=== PATIENT | female | born 1965 | race Hispanic/Latino ===

== ENCOUNTER 2017-09-05 09:58 | Emergency (ER) | payer SELFPAY ==
[2017-09-05 09:58] VITALS: BMI 23.4
[2017-09-05] MEDS ORDERED: Sodium Chloride 0.9% 1,000 ML IV STA (10:31)
--- NOTE | 2017-09-05 10:32 | ED PDOC ---
Arrival/HPI <Alan Mirza - Last Filed: 09/05/17 11:57> - History of Present Illness Time/Duration: < week Symptom Course: Intermittent Activities at Onset: Light Context: Home <Desiree White - Last Filed: 09/07/17 22:24> - General Chief Complaint: GI Problem Time Seen by Provider: 09/05/17 10:17 - History of Present Illness Narrative History of Present Illness (Text): 09/05/17 10:32 This is a 51 year old female with no PMH presents to the ER for nausea, vomiting , and diarrhea that began on Tuesday evening. Patient states she had [employer] on tuesday night and developed symptoms shortly after. She admits to nonbloody vomiting x4 today and x6 yesterday as well as associated abdominal cramps. She denies CP, SOB, blood in the urine or stool, urinary complaints, headaches, fevers, chills, recent sick contacts and recent travel. She has had gastric bypass surgery 25 years ago, 28 years ago, gallbladder removal, and hiatal hernia repair. PMD= none (Desiree White) Past Medical History - Provider Review Nursing Documentation Reviewed: Yes - Infectious Disease Hx of Infectious Diseases: None - Tetanus Immunization Tetanus Immunization: Unknown - Reproductive Menopause: Yes - Neurological Hx Neurological Disorder: No - Psychiatric Hx Depression: No Hx Emotional Abuse: No Hx Physical Abuse: No Hx Substance Use: No - Surgical History Hx Section: Yes Hx Hysterectomy: Yes Other/Comment: gastric by pass with mesh placement - Anesthesia Hx Anesthesia: Yes Hx Anesthesia Reactions: No Hx Malignant Hyperthermia: No - Suicidal Assessment Feels Threatened In Home Enviroment: No <Desiree White - Last Filed: 09/07/17 22:24> Family/Social History - Physician Review Nursing Documentation Reviewed: Yes Family/Social History: Unknown Family HX Smoking Status: Never Smoked Hx Alcohol Use: Yes Hx Substance Use: No Hx Substance Use Treatment: No <Desiree White - Last Filed: 09/07/17 22:24> Allergies/Home Meds <Alan Mirza - Last Filed: 09/05/17 11:57> <Desiree White - Last Filed: 09/07/17 22:24> Allergies/Adverse Reactions: Allergies latex Allergy (Verified 09/05/17 10:24) SWELLING Penicillins Allergy (Verified 09/05/17 10:24) ANAPHYLAXIS Review of Systems - Physician Review All systems were reviewed & negative as marked: Yes - Review of Systems Constitutional: Normal. absent: Fevers Eyes: Normal ENT: Normal Respiratory: Normal. absent: SOB Cardiovascular: Normal. absent: Chest Pain Gastrointestinal: Abdominal Pain, Diarrhea, Nausea, Vomiting. absent: Constipation, Hematochezia, Hematemesis Genitourinary Female: Normal. absent: Dysuria, Hematuria Musculoskeletal: Normal Skin: Normal Neurological: Normal. absent: Headache Psychiatric: Normal <Desiree White - Last Filed: 09/07/17 22:24> Physical Exam Vital Signs Reviewed: Yes Temperature: Afebrile Blood Pressure: Hypertensive Pulse: Regular Respiratory Rate: Normal Appearance: Positive for: Well-Appearing, Non-Toxic, Comfortable Pain Distress: None Mental Status: Positive for: Alert and Oriented X 3 - Systems Exam Head: Present: Atraumatic, Normocephalic Pupils: Present: PERRL Extroacular Muscles: Present: EOMI Conjunctiva: Present: Normal Mouth: Present: Moist Mucous Membranes Neck: Present: Normal Range of Motion Respiratory/Chest: Present: Clear to Auscultation, Good Air Exchange. No: Respiratory Distress, Accessory Muscle Use Cardiovascular: Present: Regular Rate and Rhythm, Normal S1, S2. No: Murmurs Abdomen: Present: Tenderness, Normal Bowel Sounds. No: Distention, Peritoneal Signs, Rebound, Guarding Back: Present: Normal Inspection Upper Extremity: Present: Normal Inspection. No: Cyanosis, Edema Lower Extremity: Present: Normal Inspection. No: Edema Neurological: Present: Speech Normal, Motor Func Grossly Intact, Normal Sensory Function Skin: Present: Warm, Dry, Normal Color. No: Rashes Psychiatric: Present: Alert, Oriented x 3, Normal Insight, Normal Concentration <Desiree White - Last Filed: 09/07/17 22:24> Vital Signs Temp Pulse Resp BP Pulse Ox 09/05/17 12:34 98.4 F 70 17 160/96 H 98 09/05/17 10:09 98.9 F 92 H 18 155/92 H 99 Medical Decision Making <Alan Mirza - Last Filed: 09/05/17 11:57> <Desiree White - Last Filed: 09/07/17 22:24> ED Course and Treatment: 09/05/17 11:54 patient seen and examined by myself, presents with acute vomiting and diarrhea, no red flags such fever/bloody stools/melena/foreign travel or recent abx use. patient remained stable throughout ED course and stable for dc. (Alan Mirza ) 09/05/17 10:40 Impression: This is a 51 year old female with no PMH presents to the ER for nausea, vomiting, and diarrhea that began on Tuesday evening. Differential not limited to: Viral gastroenteritis vs bacterial gastroenteritis vs gastritis Plan: Will hydrate, give zofran and pepcid and reassess. Will check blood work and lipase. RUQ US not needed as no gallbladder. Progress: (Desiree White) - Lab Interpretations Lab Results: 09/05/17 11:24 09/05/17 11:24 Lab Results 09/05/17 11:24: Sodium 140, Potassium 4.2, Chloride 102, Carbon Dioxide 25, Anion Gap 16, BUN 15, Creatinine 0.5 L, Est GFR ( Amer) > 60, Est GFR ( Non-Af Amer) > 60, Random Glucose 95, Calcium 9.4, Total Bilirubin 0.6, AST 32, ALT 30, Alkaline Phosphatase 58, Total Protein 7.8, Albumin 4.5, Globulin 3.3, Albumin/Globulin Ratio 1.4, Lipase 106 09/05/17 11:24: WBC 7.3 D, RBC 4.45, Hgb 12.3, Hct 36.1, MCV 81.1, MCH 27.6, MCHC 34.1, RDW 14.3, Plt Count 308, MPV 10.1, Gran % 63.9, Lymph % (Auto) 29.7, [place] % (Auto) 4.9, Eos % (Auto) 1.2 L, Baso % (Auto) 0.3, Gran # 4.68, Lymph # ( Auto) 2.2, [place] # (Auto) 0.4, Eos # (Auto) 0.1, Baso # (Auto) 0.02 - Medication Orders Current Medication Orders: Discontinued Medications Famotidine (Pepcid) 20 mg IVP STAT STA Stop: 09/05/17 10:34 Last Admin: 09/05/17 11:18 Dose: 20 mg IVP Administration Document 09/05/17 11:18 MR (Rec: 09/05/17 11:18 MR [id number]) Charges for Administration # of IVP Administrations 1 Sodium Chloride (Sodium Chloride 0.9%) 1,000 mls @ 999 mls/hr IV .Q1H1M STA Stop: 09/05/17 11:31 Last Admin: 09/05/17 11:38 Dose: Sodium Chloride (Sodium Chloride 0.9%) 500 mls @ 999 mls/hr IV .Q31M STA Stop: 09/05/17 11:01 Last Admin: 09/05/17 11:18 Dose: 999 mls/hr eMAR Start Stop Document 09/05/17 11:18 MR (Rec: 09/05/17 11:18 MR [id number]) Intravenous Solution Start Date 09/05/17 Start Time 11:18 End Date 09/05/17 End time 11:50 Total Infusion Time 32 Ondansetron HCl (Zofran Inj) 4 mg IVP STAT STA Stop: 09/05/17 10:32 Last Admin: 09/05/17 11:17 Dose: 4 mg IVP Administration Document 09/05/17 11:17 MR (Rec: 09/05/17 11:17 MR [id number]) Charges for Administration # of IVP Administrations 1 - PA / INSURANCE CLAIM REPRESENTATIVE / Resident Statement / has reviewed & agrees with the documentation as recorded. / has examined the patient and agrees with the treatment plan. <Desiree White - Last Filed: 09/07/17 22:24> Disposition/Present on Arrival - Present on Arrival Any Indicators Present on Arrival: No - Disposition Have Diagnosis and Disposition been Completed?: Yes Disposition Time: 11:57 Patient Plan: Discharge <Alan Mirza - Last Filed: 09/05/17 11:57> - Present on Arrival Any Indicators Present on Arrival: No History of DVT/PE: No History of Uncontrolled Diabetes: No Urinary Catheter: No History of Decub. Ulcer: No History Surgical Site Infection Following: None - Disposition Have Diagnosis and Disposition been Completed?: Yes Patient Plan: Discharge <Desiree White - Last Filed: 09/07/17 22:24> - Disposition Diagnosis: Gastroenteritis Disposition: HOME/ ROUTINE Condition: STABLE Discharge Instructions (ExitCare): Gastroenteritis (ED) Print Language: AMHARIC Additional Instructions: stay well hydrated (water). return for any new or worsening symptoms especially bloody stools, fever greater than 100.4 or persistent right lower abdominal pain. you may retrieve medical records through [employer] system at [email or web address] website Prescriptions: Ondansetron [Zofran] 4 mg PO Q8H #12 tab Referrals: Anusha Giordano MD [Staff Provider] - Follow up with primary Forms: [employer] (Hungarian), WORK NOTE
[2017-09-05] MEDS ORDERED: Sodium Chloride 0.9% 500 ML IV STA (10:33)
[2017-09-05 11:31] LABS: BASO # 0.02 K/mm3 (0.0-2.0); BASO % 0.3 % (0.0-3.0); EOS # 0.1 (0.0-0.7); EOS % 1.2 % (1.5-5.0); GRAN # 4.68 (1.4-6.5); GRAN % 63.9 % (50.0-68.0); HEMOGLOBIN 12.3 g/dL (12.0-16.0); LYMPH # 2.2 (1.2-3.4); LYMPH % 29.7 % (22.0-35.0); MEAN CELL VOLUME 81.1 fl (80.0-105.0); MEAN CORPUSCULAR HEMOGLOBIN 27.6 pg (25.0-35.0); MEAN CORPUSCULAR HGB CONC 34.1 g/dl (31.0-37.0); MEAN PLATELET VOLUME 10.1 fl (7.0-11.0); MONO # 0.4 (0.1-0.6); MONO % 4.9 % (1.0-6.0); RBC 4.45 10^6/uL (3.5-6.1); RED CELL DISTRIBUTION WIDTH 14.3 % (11.5-14.5); WHITE BLOOD COUNT 7.3 10^3/ul (4.5-11.0)
[2017-09-05 11:38] LABS: ALB/GLOB RATIO 1.4 (1.1-1.8); ALBUMIN 4.5 g/dL (3.0-4.8); ALT/SGPT 30 U/L (7-56); AST/SGOT 32 U/L (14-36); BLOOD UREA NITROGEN 15 mg/dL (7-21); CALCIUM 9.4 mg/dL (8.4-10.5); GFR AFRICAN-AMERICAN > 60; GFR NON-AFRICAN AMERICAN > 60; LIPASE 106 U/L (23-300)
[2017-09-05 12:35] VITALS: BP 160/96; PULSE 70; RESP 17; TEMP 98.4; O2SAT 98
== END 2017-09-05 12:34 | disposition home or self-care (01) ==
LOC: ED 09:58
DX: K52.9 Noninfective gastroenteritis and colitis, unspecified (principal)
CPT/HCPCS: 80053; 83690; 85025; 96361; 96374; 96375; 99284; J2405; J7030

== ENCOUNTER 2017-11-17 10:19 | Emergency (ER) | payer OTHER ==
[2017-11-17 10:22] VITALS: TEMP 98.6; BMI 28.5
[2017-11-17] MEDS ORDERED: Silver Sulfadiazine 1% Cream (25 gm) TP STA (10:26)
--- NOTE | 2017-11-17 10:30 | ED PDOC ---
Arrival/HPI - General Chief Complaint: Burn Time Seen by Provider: 11/17/17 10:25 Historian: Patient - History of Present Illness Narrative History of Present Illness (Text): 51 y/o F w/ with no significant past medical history presenting to the emergency department s/p rapid response call due to a boiling pot of hot soup falling onto her right leg prior to arrival. Patient states she was attempting to transfer soup from the stove to the counter when she slipped and spilled soup content to her right thigh. She immediately felt pain and her clothes sticking to the wound which she attempted to pull. Rapid response was called and patient was brought into the emergency department immediately. Patient denies any fever, chills, chest pain, shortness of breath, abdominal pain, nausea, vomiting, diarrhea, back pain, neck pain, headache, dizziness, or any other complaints/injuries. Time/Duration: Prior to Arrival Symptom Onset: Sudden Symptom Course: Improving Severity Level: Mild Activities at Onset: Significant Context: Work Past Medical History - Provider Review Nursing Documentation Reviewed: Yes - Travel History Have you recently traveled outside [place] w/in the past 3 mons?: No - Infectious Disease Hx of Infectious Diseases: None - Tetanus Immunization Tetanus Immunization: Unknown - Cardiac Hx Cardiac Disorders: Yes Hx Hypertension: Yes - Neurological Hx Neurological Disorder: No - Psychiatric Hx Depression: No Hx Emotional Abuse: No Hx Physical Abuse: No Hx Substance Use: No - Surgical History Hx Section: Yes Hx Hysterectomy: Yes Other/Comment: gastric by pass with mesh placement - Anesthesia Hx Anesthesia: Yes Hx Anesthesia Reactions: No Hx Malignant Hyperthermia: No - Suicidal Assessment Feels Threatened In Home Enviroment: No Family/Social History - Physician Review Nursing Documentation Reviewed: Yes Family/Social History: No Known Family HX Smoking Status: Never Smoked Hx Alcohol Use: Yes Hx Substance Use: No Hx Substance Use Treatment: No Allergies/Home Meds Allergies/Adverse Reactions: Allergies latex Allergy (Verified 11/17/17 10:21) SWELLING Penicillins Allergy (Verified 11/17/17 10:21) ANAPHYLAXIS Review of Systems - Physician Review All systems were reviewed & negative as marked: Yes - Review of Systems Constitutional: absent: Fevers, Other (Chills) Respiratory: absent: SOB Cardiovascular: absent: Chest Pain Gastrointestinal: absent: Abdominal Pain, Diarrhea, Nausea, Vomiting Musculoskeletal: absent: Back Pain, Neck Pain Skin: Other (redness and pain to the right thigh) Neurological: absent: Headache, Dizziness Physical Exam Vital Signs Reviewed: Yes Vital Signs Temp Pulse Resp BP Pulse Ox 11/17/17 10:21 98.6 F 113 H 19 127/90 98 Temperature: Afebrile Blood Pressure: Normal Pulse: Tachycardic Respiratory Rate: Normal Appearance: Positive for: Well-Appearing, Non-Toxic, Comfortable Pain Distress: None Mental Status: Positive for: Alert and Oriented X 3 - Systems Exam Head: Present: Atraumatic, Normocephalic Pupils: Present: PERRL Extroacular Muscles: Present: EOMI Conjunctiva: Present: Normal Mouth: Present: Moist Mucous Membranes Neck: Present: Normal Range of Motion Respiratory/Chest: Present: Clear to Auscultation, Good Air Exchange. No: Respiratory Distress, Accessory Muscle Use Cardiovascular: Present: Regular Rate and Rhythm, Normal S1, S2. No: Murmurs Lower Extremity: Present: NORMAL PULSES (Distal pulses intact), Tenderness (Slight tenderness to palpation to the right thigh), Erythema (Large area to the anterior medial right thigh. No blisters noted). No: Edema Neurological: Present: GCS=15, CN II-XII Intact, Speech Normal Skin: Present: Warm, Dry, Normal Color. No: Rashes Psychiatric: Present: Alert, Oriented x 3, Normal Insight, Normal Concentration Medical Decision Making ED Course and Treatment: 11/17/17 10:30 Impression: 51 year old female presents s/p spilling boiling pot of hot soup to her right thigh prior to arrival concerning for first degree burn Plan: -- Silvadene 1% 25 gm -- Reassess and disposition Progress Notes: 11/17/17 10:40 On reevaluation patient is complaining of a headache. Will order Fioricet and discharge patient. 11/17/17 10:58 On re-evaluation, patient feels better and is in no acute distress. I have discussed the plan with the patient, who expresses understanding. Patient in agreement with plan to be discharged home. Patient is stable for discharge. Patient was instructed to follow up with physician or return if symptoms worsen or new concerning symptoms arise. - Scribe Statement The provider has reviewed the documentation as recorded by the Ivette Gonzalez Provider Scribe Attestation: All medical record entries made by the Scribe were at my direction and personally dictated by me. I have reviewed the chart and agree that the record accurately reflects my personal performance of the history, physical exam, medical decision making, and the department course for this patient. I have also personally directed, reviewed, and agree with the discharge instructions and disposition. Disposition/Present on Arrival - Present on Arrival Any Indicators Present on Arrival: No History of DVT/PE: No History of Uncontrolled Diabetes: No Urinary Catheter: No History of Decub. Ulcer: No History Surgical Site Infection Following: None - Disposition Have Diagnosis and Disposition been Completed?: Yes Diagnosis: First degree burn injury Disposition: HOME/ ROUTINE Disposition Time: 10:59 Patient Plan: Discharge Condition: STABLE Discharge Instructions (ExitCare): [place] (DC) Prescriptions: Ibuprofen [Motrin] 600 mg PO Q6H 2 Days #12 tab [place] [facility] [place] - Follow up with primary Anusha Giordano MD [Medical Doctor] - Follow up with primary Forms: [employer] [facility] (Beninese), WORK NOTE
[2017-11-17] MEDS ORDERED: Apap-Butalbital-Caffeine 325-50-40mg Tab PO STA (10:46)
[2017-11-17 11:30] VITALS: BP 121/75; PULSE 88; RESP 18; O2SAT 99
== END 2017-11-17 11:29 | disposition home or self-care (01) ==
LOC: ED 10:19
DX: T24.111A Burn of first degree of right thigh, initial encounter (principal); X12.XXXA Contact with other hot fluids, initial encounter; Y92.238 Other place in hospital as the place of occurrence of the external cause; Y99.0 Civilian activity done for income or pay

== ENCOUNTER 2018-07-20 12:38 | Emergency (ER) | payer OTHER ==
[2018-07-20 12:44] VITALS: BMI 28.3
[2018-07-20 12:47] VITALS: RESP 18; TEMP 98.6
[2018-07-20] MEDS ORDERED: Sodium Chloride 0.9% 1,000 ML IV STA (13:11)
--- NOTE | 2018-07-20 13:16 | ED PDOC ---
Arrival/HPI - General Chief Complaint: High Blood Pressure Time Seen by Provider: 07/20/18 12:44 Historian: Patient - History of Present Illness Narrative History of Present Illness (Text): 07/20/18 13:13 A 52 year old female, who is an employee of [employer], whose past medical history includes hypertension, presents to the ED complaining of nausea and vomiting since today. Patient reports associated headache, dizziness and high blood pressure (checked at home). Patient denies any fall, fevers, chills, weakness, numbness, chest pain, shortness of breath, dyspnea on exertion, cough, abdominal pain, diarrhea, back pain, neck pain, urinary/bowel changes, or any other complaints. PMD: Dr. Mccauley Time/Duration: 4-6 hours Symptom Onset: Gradual Symptom Course: Unchanged Activities at Onset: Significant Context: Home Past Medical History - Provider Review Nursing Documentation Reviewed: Yes - Infectious Disease Hx of Infectious Diseases: None - Tetanus Immunization Tetanus Immunization: Unknown - Cardiac Hx Cardiac Disorders: Yes Hx Hypertension: Yes - Neurological Hx Neurological Disorder: No - Psychiatric Hx Depression: No Hx Emotional Abuse: No Hx Physical Abuse: No Hx Substance Use: No - Surgical History Hx Section: Yes Hx Hysterectomy: Yes Other/Comment: gastric by pass with mesh placement - Anesthesia Hx Anesthesia: Yes Hx Anesthesia Reactions: No Hx Malignant Hyperthermia: No - Suicidal Assessment Feels Threatened In Home Enviroment: No Family/Social History - Physician Review Nursing Documentation Reviewed: Yes Family/Social History: No Known Family HX Smoking Status: Never Smoked Hx Alcohol Use: Yes Hx Substance Use: No Hx Substance Use Treatment: No Allergies/Home Meds Allergies/Adverse Reactions: Allergies latex Allergy (Verified 07/20/18 12:44) SWELLING Penicillins Allergy (Verified 07/20/18 12:44) ANAPHYLAXIS Home Medications: Home Meds Medication Instructions Recorded Confirmed Estradiol [Estrace] 2 mg PO DAILY 07/20/18 07/20/18 amLODIPine [Norvasc] 5 mg PO DAILY 07/20/18 07/20/18 Review of Systems - Physician Review All systems were reviewed & negative as marked: Yes - Review of Systems Gastrointestinal: Nausea, Vomiting Neurological: Headache, Dizziness Physical Exam Vital Signs Reviewed: Yes Vital Signs Temp Pulse Resp BP Pulse Ox 07/20/18 13:02 98.6 F 158/100 H 07/20/18 12:45 98.6 F 97 H 18 173/109 H 97 Temperature: Afebrile Blood Pressure: Hypertensive Pulse: Regular Respiratory Rate: Normal Appearance: Positive for: Well-Appearing, Non-Toxic, Comfortable Pain Distress: None - Systems Exam Head: Present: Tenderness (Tenderness to palpation at right orthodox.) Pupils: Present: PERRL Extroacular Muscles: Present: EOMI Conjunctiva: Present: Normal Respiratory/Chest: Present: Clear to Auscultation, Good Air Exchange. No: Respiratory Distress, Accessory Muscle Use Cardiovascular: Present: Regular Rate and Rhythm, Normal S1, S2. No: Murmurs Skin: Present: Warm, Dry, Normal Color. No: Rashes Psychiatric: Present: Alert, Oriented x 3, Normal Insight, Normal Concentration Medical Decision Making ED Course and Treatment: 07/20/18 13:22 Impression: 52 year old female who presents to the ED complaining of nausea and vomiting since today. Plan: -- Head CT -- Labs -- Norvasc -- Reglan -- IV Fluids -- Urinalysis -- Reassess and disposition Prior Visits: Notes and results from previous visits were reviewed. Patient was last seen in the emergency department on 11/17/17. Progress Notes: 07/20/18 14:49 Labs reviewed with no acute abnormalities. UA pending. CTH results pending. 07/20/18 15:32 CTH negative for intracranial abnormalities. Patient reevaluated and feels better. She states she has an appointment with her PCP on 07/27/18. She admits to having enough Norvasc and does not need a refill at this time. Opportunity for questions given and answered. She is stable for discharge. - Lab Interpretations Lab Results: 07/20/18 13:50 07/20/18 13:50 Lab Results 07/20/18 13:50: Sodium 137, Potassium 4.2, Chloride 102, Carbon Dioxide 25, Anion Gap 14, BUN 14, Creatinine 0.5 L, Est GFR ( Amer) > 60, Est GFR (Non-Af Amer) > 60, Random Glucose 90, Calcium 9.4, Total Bilirubin 0.3, AST 33, ALT 20, Alkaline Phosphatase 50, Troponin I < 0.01, Total Protein 7.9, Albumin 4.5, Globulin 3.5, Albumin/Globulin Ratio 1.3 07/20/18 13:50: WBC 8.8, RBC 4.49, Hgb 12.1, Hct 37.0, MCV 82.4, MCH 26.9, MCHC 32.7, RDW 14.7 H, Plt Count 340, MPV 9.8, Neut % (Auto) 70.9 H, Lymph % (Auto) 24.3, [place] % (Auto) 3.6, Eos % (Auto) 0.6 L, Baso % (Auto) 0.6, Lymph # (Auto) 2.1, [place] # (Auto) 0.3, Eos # (Auto) 0.1, Baso # (Auto) 0.05, Absolute Neuts (auto) 6.22 I have reviewed the lab results: Yes - RAD Interpretation Narrative RAD Interpretations (Text): 07/20/18 15:[address] IMPRESSION: No intracranial, hemorrhage or evidence of acute infarct. Radiology Orders: 07/20/18 13:11 HEAD W/O CONTRAST [CT] Stat - EKG Interpretation EKG Interpretation (Text): 07/20/18 13:25 EKG: NSR @ [address] abnormalities. No T wave inversions. - Medication Orders Current Medication Orders: Sodium Chloride (Sodium Chloride 0.9%) 1,000 mls @ 999 mls/hr IV .Q1H1M STA Stop: 07/20/18 14:11 Metoclopramide HCl (Reglan) 10 mg IVP STAT STA Stop: 07/20/18 13:12 Discontinued Medications Amlodipine Besylate (Norvasc) 10 mg PO STAT STA Stop: 07/20/18 13:04 - Scribe Statement The provider has reviewed the documentation as recorded by the Ivette Womack Provider Scribe Attestation: All medical record entries made by the [place] were at my direction and personally dictated by me. I have reviewed the chart and agree that the record accurately reflects my personal performance of the history, physical exam, medical decision making, and the department course for this patient. I have also personally directed, reviewed, and agree with the discharge instructions and disposition. Disposition/Present on Arrival - Present on Arrival Any Indicators Present on Arrival: No History of DVT/PE: No History of Uncontrolled Diabetes: No Urinary Catheter: No History of Decub. Ulcer: No History Surgical Site Infection Following: None - Disposition Have Diagnosis and Disposition been Completed?: Yes Diagnosis: Hypertensive urgency Disposition: HOME/ ROUTINE Disposition Time: 15:36 Patient Plan: Discharge Condition: GOOD Discharge Instructions (ExitCare): High Blood Pressure (DC) Print Language: SERBIAN Additional Instructions: All medical record entries made by the Scribe were at my direction and personally dictated by me. I have reviewed the chart and agree that the record accurately reflects my personal performance of the history, physical exam, medical decision making, and the department course for this patient. I have also personally directed, reviewed, and agree with the discharge instructions and disposition. Please follow up with your PCP in the upcoming week Try to take your antihypertensive medications as prescribed Referrals: Chary Renee MD [Family Provider] - Follow up with primary Forms: [employer] ([place]an), WORK NOTE
[2018-07-20 14:29] LABS: BASO # 0.05 K/mm3 (0.0-2.0); BASO % 0.6 % (0.0-3.0); EOS # 0.1 (0.0-0.7); EOS % 0.6 % (1.5-5.0); HEMOGLOBIN 12.1 g/dL (12.0-16.0); LYMPH # 2.1 (1.2-3.4); LYMPH % 24.3 % (22.0-35.0); MEAN CELL VOLUME 82.4 fl (80.0-105.0); MEAN CORPUSCULAR HEMOGLOBIN 26.9 pg (25.0-35.0); MEAN CORPUSCULAR HGB CONC 32.7 g/dl (31.0-37.0); MEAN PLATELET VOLUME 9.8 fl (7.0-11.0); MONO # 0.3 (0.1-0.6); MONO % 3.6 % (1.0-6.0); RBC 4.49 10^6/uL (3.5-6.1); RED CELL DISTRIBUTION WIDTH 14.7 % (11.5-14.5); WHITE BLOOD COUNT 8.8 10^3/uL (4.5-11.0)
[2018-07-20 14:32] LABS: ALB/GLOB RATIO 1.3 (1.1-1.8); ALBUMIN 4.5 g/dL (3.0-4.8); ALT/SGPT 20 U/L (7-56); AST/SGOT 33 U/L (14-36); BLOOD UREA NITROGEN 14 mg/dL (7-21); CALCIUM 9.4 mg/dL (8.4-10.5); GFR NON-AFRICAN AMERICAN > 60
[2018-07-20 14:36] VITALS: O2SAT 99
[2018-07-20 14:42] LABS: TROPONIN I < 0.01 ng/mL
[2018-07-20 14:51] LABS: PH,URINE 6.5 (4.7-8.0); URINE BILIRUBIN NEGATIVE (NEGATIVE); URINE BLOOD NEGATIVE (NEGATIVE); URINE GLUCOSE (UA) NEGATIVE (NEGATIVE); URINE LEUKOCYTE ESTERASE NEGATIVE Leu/uL (NEGATIVE); URINE PROTEIN NEGATIVE mg/dL (<30 mg/dL); URINE UROBILINOGEN 0.2 E.U./dL (<1 E.U./dL)
[2018-07-20 14:52] LABS: URINE APPEARANCE CLEAR (CLEAR); URINE COLOR YELLOW (YELLOW)
--- NOTE | 2018-07-20 14:58 | CT ---
Date of service: 07/20/2018 PROCEDURE: CT HEAD WITHOUT CONTRAST. HISTORY: headache COMPARISON: 07/28/2012 TECHNIQUE: Axial computed tomography images were obtained through the head/brain without intravenous contrast. Radiation dose: Total exam DLP = 846.17 mGy-cm. This CT exam was performed using one or more of the following dose reduction techniques: Automated exposure control, adjustment of the mA and/or kV according to patient size, and/or use of iterative reconstruction technique. FINDINGS: HEMORRHAGE: No intracranial hemorrhage. BRAIN: No mass effect or edema. No atrophy or chronic microvascular ischemic changes. VENTRICLES: Unremarkable. No hydrocephalus. CALVARIUM: Unremarkable. PARANASAL SINUSES: Unremarkable as visualized. No significant inflammatory changes. MASTOID AIR CELLS: Unremarkable as visualized. No inflammatory changes. OTHER FINDINGS: None. IMPRESSION: No intracranial mass, hemorrhage or evidence of acute infarct.
[2018-07-20 16:08] VITALS: BP 134/79; PULSE 81
--- NOTE | 2018-07-20 19:39 | CARD ---
APPROVED REPORT Date of service: 07/20/2018 EKG Measurement Heart [id number] <Conclusion> Normal sinus rhythm Normal ECG
== END 2018-07-20 16:20 | disposition home or self-care (01) ==
LOC: ED 12:38
DX: I10 Essential (primary) hypertension (principal)
CPT/HCPCS: 70450; 80053; 81003; 84484; 85025; 93005; 96361; 96374; 96375; 99284; J1885; J2765; J7030